=== PATIENT | female | born 1990 | race American Indian/Alaskan Native ===

== ENCOUNTER 2017-03-31 08:49 | Emergency (ER) | payer OTHER ==
[2017-03-31 08:57] VITALS: BP 121/72
[2017-03-31] MEDS ORDERED: XOPENEX IH ONE (11:55)
[2017-03-31] MEDS ORDERED: ZITHROMAX PO ONE (11:56)
[2017-03-31] MEDS ORDERED: TYLENOL/CODEINE PO ONE (11:56)
--- NOTE | 2017-03-31 12:04 | Emergency Department Report ---
Minor Respiratory - HPI Chief Complaint: Upper Respiratory Infection Stated Complaint: C/P, COUGH, CHRISTIN Time Seen by Provider: 03/31/17 11:17 Minor Respiratory: Yes Able to Tolerate Fluids, Yes Cough, Yes Chest Pain (with coughing), No Rhinorrhea, No Sore Throat, No Ear Pain, No Sick Contacts, No Hemoptysis, No Shortness of Breath, No Fever Other History: Patient is a 26-year-old with a history of asthma who presents at 18 weeks gestation complaining of dry, non-productive, intermittent coughing for the past 5 days. Patient states she was seen [facility] 2 days ago and was given promethazine and 5 day course of steroids. Patient states that she has albuterol nebulizer machine at home and states that she had a breathing treatment that did not resolve her coughing. She denies any abnormalities or complications such as vaginal bleeding, leaking of fluid, dysuria or vaginal discharge. Patient states that she sees her MACHINE WELDER out of [place] regularly. Patient also states that she's been referred to a technical service rep by her MACHINE WELDER ED Review of Systems ROS: Stated complaint: C/P, COUGH, CHRISTIN Other details as noted in HPI Constitutional: denies: chills, fever Eyes: denies: eye pain, eye discharge, vision change ENT: denies: ear pain, throat pain Respiratory: denies: cough, shortness of breath, wheezing Cardiovascular: denies: chest pain, palpitations Endocrine: no symptoms reported Gastrointestinal: denies: abdominal pain, nausea, diarrhea Genitourinary: denies: urgency, dysuria, discharge Musculoskeletal: denies: back pain, joint swelling, arthralgia Skin: denies: rash, lesions Neurological: denies: headache, weakness, paresthesias Psychiatric: denies: anxiety, depression Hematological/Lymphatic: denies: easy bleeding, easy bruising ED Past Medical Hx - Past Medical History Previous Medical History?: No - Surgical History Past Surgical History?: No - Social History Smoking Status: Never Smoker Substance Use Type: Prescribed - Medications Home Medications: Home Medications Medication Instructions Recorded Confirmed Last Taken Type Azithromycin [Zithromax TAB] 500 mg PO QDAY #4 tablet 03/31/17 Unknown Rx Benzonatate [Tessalon Perles] 100 mg PO Q8HR #24 capsule 03/31/17 Unknown Rx Budesonide/Formoterol Fumarate 10.2 gm IH BID #1 hfa.aer.ad 03/31/17 Unknown Rx [Symbicort 160-4.5 Mcg Inhaler] Minor Respiratory Exam - Exam General: Vital signs noted. No distress. Alert and acting appropriately. HEENT: Yes Moist Mucous Membranes, No Pharyngeal Erythema, No Pharyngeal Exudates, No Rhinorrhea, No Conjuctival Injection, No Frontal Tenderness, No Maxillary Tenderness Ear: Neither TM Bulge, Neither TM Erythema, Neither EAC Pain, Neither EAC Discharge Neck: Yes Supple, No Adenopathy Lungs: Yes Good Air Exchange, No Wheezes, No Ronchi, No Stridor, No Cough, No Labored Respirations, No Retractions, No Use of Accessory Muscles, No Other Abnormal Lung Sounds Heart: Yes Regular, No Murmur Abdomen: Yes Normal Bowel Sounds, No Tenderness, No Peritoneal Signs Skin: No Rash, No Edema Neurologic: Alert and oriented, no deficits. Musculoskeletal: Unremarkable. ED Course Vital Signs 03/31/17 08:53 Temperature 98.8 F Pulse Rate 92 H Respiratory 18 Rate Blood Pressure 121/72 O2 Sat by Pulse 94 Oximetry ED Medical Decision Making - Medical Decision Making 26-year-old female presents today bronchitis-induced asthma ED course: Patient seen breathing treatment in ED Patient has been on steroids for the past 2 days. I discussed with the patient to continue taking steroids as prescribed. I discussed the patient I'll be sending her home on some cough suppression and continue prescription of her inhaler. I discussed the patient to use as needed. Discussed the patient was sent home on azithromycin to cover any bacterial infection due to the fact that she is 18 weeks . Prophylaxis treatment is given. X-rays are not recommended. I discussed the patient to follow up with the technical service rep referred by her OB. Vital signs are normal patient is in no acute or respiratory distress Post lung examination shows no wheezing or rales or any use of accessory muscles. Patient reports feeling better after breathing treatment. Patient states she will follow-up with MACHINE WELDER as well as her technical service rep Critical care attestation.: If time is entered above; I have spent that time in minutes in the direct care of this critically ill patient, excluding procedure time. ED Disposition Clinical Impression: Bronchitis, Asthma exacerbation, mild Disposition: [id number] TO HOME OR SELFCARE Is pt being admited?: No Does the pt Need Aspirin: No Condition: Stable Instructions: Asthma (ED), Acute Bronchitis (ED), Chronic Bronchitis (ED) Additional Instructions: Make sure to follow up with the primary care physician as discussed. Make an appointment of follow-up with a lung specialist that was referred to you by MACHINE WELDER Take all your medications as you've been prescribed. If you have any worsening symptoms or develop new symptoms please return to ED immediately. Prescriptions: Azithromycin [Zithromax TAB] 500 mg PO QDAY #4 tablet Benzonatate [Tessalon Perles] 100 mg PO Q8HR #24 capsule Budesonide/Formoterol Fumarate [Symbicort 160-4.5 Mcg Inhaler] 10.2 gm IH BID # 1 hfa.aer.ad Referrals: PRIMARY CARE, [Primary Care Provider] - 3-5 Days Forms: Accompanied Note, Work/School Release Form(ED) Time of Disposition: 12:54
== END 2017-03-31 13:07 | disposition home or self-care (01) ==
LOC: ED 08:49
DX: J40 Bronchitis, not specified as acute or chronic (principal)
CPT/HCPCS: 99283

== ENCOUNTER 2017-04-30 12:14 | Outpatient (CLI) | payer OTHER ==
[2017-04-30 12:36] VITALS: BP 114/67
[2017-04-30 13:33] LABS: Bilirubin,Urine NEG (Negative); Blood,Urine NEG (Negative); Color,Urine Yellow (Yellow); Mucus,Urine FEW /HPF; Protein,Urine <15 mg/dL mg/dL (Negative); Urobilinogen,Urine < 2.0 mg/dL (<2.0); WBC,Urine < 1.0 /HPF (0.0-6.0)
[2017-04-30 14:13] LABS: Amphetamine Screen,Urine PRESUMPTIVE NEGATIVE; Benzodiazepines Screen,Urine PRESUMPTIVE NEGATIVE; Cocaine Screen,Urine PRESUMPTIVE NEGATIVE; Methadone Screen,Urine PRESUMPTIVE NEGATIVE; Opiate Screen,Urine PRESUMPTIVE NEGATIVE
[2017-04-30 14:33] LABS: Cannabinoid Screen,Urine PRESUMPTIVE POSITIVE
== END 2017-04-30 14:00 | disposition home or self-care (01) ==
LOC: TRG 12:14
PROVIDERS: ATTEND Obstetrics & Gynecology
DX: Z34.82 Encounter for supervision of other normal pregnancy, second trimester (principal); Z3A.21 21 weeks gestation of pregnancy; Z79.899 Other long term (current) drug therapy
CPT/HCPCS: 59025; 80307; 81001